=== PATIENT | female | born 1990 | race Caucasian/White ===

== ENCOUNTER 2016-12-23 19:03 | Inpatient (IN) | payer BC ==
--- NOTE | ~2016-12-23 | PA ---
Unit #: [id number] #: [id number] Patient: DAVI BRUNO [id number] [facility] [address] [place] [address] [id number] MR#: [id number] NAME: DAVI BRUNO ROOM: P254 Age: 26 Sex: F Admission Date: 12/23/2016 : 1990 Date of Assessment: 12/24/2016 Attending Physician: Marilee Mensah M.D. Admitting Physician: Marilee Mensah M.D. Primary Care Physician: Primary Care Physician No PSYCHIATRIC ASSESSMENT DATE OF SERVICE 12/24/2016. IDENTIFYING DATA Ms. Bruno is a 26-year-old white female who is a resident of [place], [place] and was brought to the hospital accompanied by her . CHIEF COMPLAINT "I tried to go and seek treatment." HISTORY OF PRESENT ILLNESS Ms. Bruno is a 26-year-old white female who was brought to the hospital with increasing depression stating that her medication is not doing anything. Things are progressively getting worse. 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 I have to excuse herself because of the panic attack and she reports that she is in treatment and has been taking medication, but does not feel the medication has been helping her as she has been greeted anxiety attacks and increasing depression and feels the things are getting worse and denies any thoughts of wanting to kill herself and reports some anger towards "beating the hell out of some coworkers." However, she did not recall any names of it. She stated the last time she has suicidal ideation was when she was having a panic attack and thought about jumping out of the third floor of the building and today she has thought about jumping out of the car on the way to the work and stated that she has thought about taking a handful of pills and as such, was seen to be danger to self and others and recommendation for inpatient level of care was made and the patient was transferred to us. SUBSTANCE ABUSE HISTORY The patient reports history of experimentation with drugs including cannabis, cocaine, acid and currently she denies any drug and has not any drugs since teenage years. PAST PSYCHIATRIC HISTORY The patient has had history of outpatient psychiatric treatment through different providers and currently she has been seeing Dr. Edgar Minor on an outpatient basis and review of the medical records indicate that she is on a combination of BuSpar and Wellbutrin, but does not feel the medication has been helping her. Unit #: [id number] #: [id number] Patient: DAVI BRUNO PAST MEDICAL HISTORY The patient's medical history is significant for asthma, interstitial cystitis. ALLERGIES Morphine. PERSONAL AND SOCIAL HISTORY A 26-year-old white female who reports that she is and lives at home with her and niece, and her 8-year-old daughter, and she is currently employed and reports having fairly decent social support system. MENTAL STATUS EXAMINATION Young white female who was casually dressed with fair personal hygiene, appears to be in no acute distress or discomfort. She was awake and alert on interaction with intact orientation to time, place, and person. Her mood was anxious and depressed with a congruent affect. Her speech was slow and restricted in content. She reports having suicidal ideations, but as well as some vague homicidal ideations. Her insight and judgment remain significantly impaired. DIAGNOSTIC IMPRESSION Psychiatric: Major depressive disorder, recurrent, moderate, without psychotic features; generalized anxiety disorder. Medical: Interstitial cystitis and asthma. Stressors: Moderate psychosocial stressors. TREATMENT PLAN 1. The patient has presented with history of mood disorder and has been decompensating and will need inpatient hospitalization for safety and stabilization. We will start her back on her home medications. We will adjust the medications and monitor response. 2. Supportive therapy was provided to the patient. 3. Safe, structured, and nourishing environment will be provided. ESTIMATED LENGTH OF STAY 5 to 7 days. ABILITY TO HELP SELF Limited. WILLINGNESS TO HELP SELF The patient appears to be willing to help self. STRENGTHS 1. Communicative. 2. Cooperative. PROBLEMS 1. Chronic dysphoric symptoms. 2. Poor social support system. DISCHARGE CRITERIA This will be contingent upon the patient's ability to show resolution of her depression and anxiety as well as her ability to stay safe to herself, particularly after discharge from the hospital. Dictated by... Unit #: [id number] #: [id number] Patient: DAVI BRUNO Shannon Carr/jose TD: 12/25/2016 01:43 JOB #: [id number] PSYCHIATRIC ASSESSMENT X Marilee Mensah MD PSYCHIATRIC ASSESSMENT
--- NOTE | ~2016-12-23 | PN ---
Unit #: [id number] #: [id number] Patient: DAVI BRUNO [id number] [facility] [address] [place] [address] [id number] I MR#: [id number] NAME: DAVI BRUNO ROOM: P254 Age: 26 Sex: F Admission Date: 12/23/2016 : 1990 Attending Physician: Marilee Mensah M.D. Admitting Physician: Marilee Mensah M.D. Primary Care Physician: Primary Care Physician Precious HENDRIX PROGRESS NOTES DATE OF SERVICE: 12/26/2016 SUBJECTIVE Ms. Bruno is a 26-year-old white female, who was seen today and chart was reviewed and the case was discussed with the staff. She has been anxious, withdrawn, depressed, and rather seclusive to herself. Meanwhile, she has been cooperative with the treatment recommendations and has been taking the medications and tolerating them fairly well with no reported side effects. MENTAL STATUS EXAMINATION Young white female, who was casually dressed with a fair personal hygiene, appears to be in no acute distress or discomfort. She was awake and alert on interaction with intact orientation. Her mood was anxious with a congruent affect. She denies any suicidal or homicidal ideations. Her insight and judgment remain slightly impaired. TREATMENT PLAN 1. We will continue her on her current medications and treatment protocol. We will monitor her response to the medications and make further adjustments as needed. 2. We will continue to follow up. Dictated by... Shannon Carr/jose TD: 12/26/2016 20:58 JOB #: [id number] [facility] PROGRESS NOTES X Marilee Mensah MD PROGRESS NOTE
--- NOTE | ~2016-12-23 | DS ---
Unit #: [id number] #: [id number] [facility]: [facility] [id number] [facility] [address] [place] [address] [id number] MR#: [id number] NAME: DAVI BRUNO ROOM: P254 Age: 26 Sex: F Admission Date: 12/23/2016 : 1990 Discharge Date: 12/29/2016 Attending Physician: Marilee Mensah M.D. Primary Care Physician: Primary Care Physician No DISCHARGE SUMMARY IDENTIFYING DATA Ms. Bruno is a 26-year-old single white female, who is a resident of [place], [place], and was brought to the hospital accompanied by her . DISCHARGE DIAGNOSES Psychiatric: Major depressive disorder, recurrent, moderate, without psychotic features; generalized anxiety disorder. Medical: Interstitial cystitis and asthma. Stressors: Moderate psychosocial stressors. HISTORY OF PRESENT ILLNESS Please see initial psychiatric evaluation for details. PAST PSYCHIATRIC HISTORY Please see initial psychiatric evaluation for details. PAST MEDICAL HISTORY Please see initial psychiatric evaluation for details. HOSPITAL COURSE The patient was admitted to the adult psychiatric unit at [facility] and was oriented to the hospital environment. Routine p.r.n. medications were initiated, and she was started back on her home medications and medications were adjusted and she was closely monitored. She was taking the medications regularly and was tolerating them fairly well and was able to show a decent and therapeutic response and as such, it was decided that she will be discharged home and will continue treatment on an outpatient basis. DISCHARGE MEDICATIONS Effexor XR 75 mg at bedtime for depression, BuSpar 15 mg t.i.d. for anxiety, Risperdal 0.5 mg b.i.d. for mood disorder. DISCHARGE CONDITION Stable. PROGNOSIS Fair. Dictated by... Marilee Mensah M.D. Unit #: [id number] #: [id number] Patient: DAVI BRUNO IAA/modl TD: 12/29/2016 08:03 JOB #: [id number] DISCHARGE SUMMARY X Marilee Mensah MD X DISCHARGE SUMMARY
--- NOTE | ~2016-12-23 | HP ---
Unit #: [id number] #: [id number] Patient: DAVI BRUNO [id number] [place] [address] [id number] MR#: [id number] NAME: DAVI BRUNO ROOM: P254 Age: 26 Sex: F Admission Date: 12/23/2016 : 1990 Attending Physician: Marilee Mensah M.D. Admitting Physician: Marilee Mensah M.D. Primary Care Physician: Primary Care Physician No HISTORY AND PHYSICAL HISTORY OF PRESENT ILLNESS Davi is a 26 year old admitted to [address] [place] [address] with increased anxiety and panic attacks. PAST MEDICAL HISTORY 1. History of interstitial cystitis. 2. History of kidney stones. 3. History of migraine headaches. PAST SURGICAL HISTORY Multiple lithotripsies. ALLERGIES Morphine. SOCIAL HISTORY Smokes less than 1 pack per day. Drinks alcohol socially. Admits to using marijuana on occasion. FAMILY HISTORY Medically noncontributory. REVIEW OF SYSTEMS CONSTITUTIONAL: No fever or chills. HEENT: Denies any sore throat, ear pain or runny nose. CARDIOVASCULAR: Denies chest pain, irregular heart rhythm or palpitations. CHEST: Denies shortness of breath or cough. No hemoptysis. GASTROINTESTINAL: Denies nausea, vomiting, diarrhea or chronic constipation. ENDOCRINE: Denies history of increased thirst or urination. No recent significant weight loss or gain. GENITOURINARY: Denies dysuria, frequency, or hematuria. SKIN: Denies any rashes. HEMATOLOGIC: Denies history of increased bleeding or bruising. MUSCULOSKELETAL: Denies any hot, swollen joints. No generalized muscle pain. NEUROLOGIC: Denies problems with vision or speech. No frequent, severe headaches. No numbness, tingling or weakness in any extremities. Denies loss of bladder or bowel control. CURRENT MEDICATIONS 1. Effexor XR 75 mg q.h.s. 2. Risperdal 0.5 mg b.i.d. Unit #: [id number] #: [id number] Patient: DAVI BRUNO 3. Milk of Magnesia p.r.n. 4. Maalox p.r.n. 5. Tylenol p.r.n. 6. Proventil inhaler p.r.n. 7. BuSpar 15 mg t.i.d. 8. Nicotine patch 14 mg daily. PHYSICAL EXAMINATION GENERAL: Alert, well-nourished, no apparent distress. VITAL SIGNS: Blood pressure 113/80, heart rate 76, respirations 16, temperature 98.6. WEIGHT: 144. HEIGHT: 5 feet 2 inches. SKIN: Warm and dry without rash or lesion. HEENT: Normocephalic. TMs not viewed. Oral and nasal passages clear. Conjunctivae clear. PERRLA. EOMs intact. NECK: Supple without lymphadenopathy or thyromegaly. HEART: Regular rate and rhythm without murmur. LUNGS: Clear. ABDOMEN: Soft, nontender. : Not done. EXTREMITIES: No evidence of cyanosis, clubbing or edema. Moves all without focal deficit. NEUROLOGICAL: Grossly within normal limits. Cranial Nerves: II: Visual gonsalez are intact. III, IV AND : Extraocular movements are intact. Pupils are equal, round and reactive to light. V: Facial sensation is grossly normal. VII: Facial movements and expression are normal. VIII: Auditory acuity grossly intact. IX, X: Uvula is midline. Phonation is normal. XI: Patient shrugs shoulders and turns head normally. XII: Tongue protrudes in the midline. Sensory and Motor Function: Sensory and motor sensation is grossly normal. Motor: moves all extremities well. Coordination: Gait is normal. Deep Tendon Reflexes: Intact. DIAGNOSTIC STUDIES LABORATORY DATA: Admission labs, BUN/creatinine 9/0.6. IMPRESSION Psychiatric admission. RECOMMENDATIONS PSYCHIATRIC: Per psychiatrist. MEDICAL: See no contraindications to participate in facility's activities. MEDICAL PROGNOSIS Good. MEDICAL CONDITION Stable. Dictated by... Genny Floyd P.A.-C. for Rikki Marx M.D. Unit #: [id number] #: [id number] Patient: DAVI BRUNODANELLE/mikaela TD: 12/24/2016 18:56 JOB #: [id number] HISTORY AND PHYSICAL X Genny Floyd HISTORY AND PHYSICAL
--- NOTE | ~2016-12-23 | PN ---
Unit #: [id number] #: [id number] Patient: DAVI BRUNO [id number] [facility] [address] [place] [address] [id number] I MR#: [id number] NAME: DAVI BRUNO ROOM: P254 Age: 26 Sex: F Admission Date: 12/23/2016 : 1990 Attending Physician: Marilee Mensah M.D. Admitting Physician: Marilee Mensah M.D. Primary Care Physician: Primary Care Physician Precious HENDRIX PROGRESS NOTES DATE 12/27/2016 DISCUSSION Ms. Bruno is a 26-year-old white female who was seen today and chart was reviewed and case was discussed with the staff. She has been anxious, withdrawn though has not shown any agitation, irritability and has been calm and cooperative reports that she has not anxiety attack and has been rather excited about it. MENTAL STATUS EXAMINATION Young white female who was casually dressed with fair personal hygiene, appears to be in no acute distress or discomfort. She was awake and alert on interaction with intact orientation. Her mood was anxious with congruent affect. She denies any suicidal or homicidal ideations. Her insight and judgement remains slightly impaired. TREATMENT PLAN 1. We will continue her on her current medications and treatment protocol. We will monitor her response to the medication and make further adjustments as needed. 2. We will continue to follow up. Dictated by... Shannon Carr/renay TD: 12/29/2016 01:52 JOB #: [id number] Unit #: [id number] #: [id number] Patient: DAVI BRUNO KADYVELVET PROGRESS NOTES X Marilee Mensah MD PROGRESS NOTE
--- NOTE | ~2016-12-23 | PN ---
Unit #: [id number] #: [id number] Patient: DAVI BRUNO [id number] [facility] [address] [place] [address] [id number] I MR#: [id number] NAME: DAVI BRUNO ROOM: P254 Age: 26 Sex: F Admission Date: 12/23/2016 : 1990 Attending Physician: Marilee Mensah M.D. Admitting Physician: Marilee Mensah M.D. Primary Care Physician: Primary Care Physician Precious LINDQUIST NOTES DATE OF SERVICE: 12/28/2016 SUBJECTIVE Ms. Bruno is a 26-year-old white female, who was seen today and chart was reviewed, and case was discussed with the staff. She reports doing fairly well and has been calm and cooperative with treatment recommendations, and has been taking the medications and tolerating them fairly well. MENTAL STATUS EXAMINATION Young white female, who was casually dressed with fair personal hygiene, appears to be in no acute distress or discomfort. She was awake and alert on interaction with intact orientation. Her mood was anxious with a congruent affect. She denies any suicidal or homicidal ideations. Her insight and judgment remain slightly impaired. TREATMENT PLAN We will continue her on her current medications and treatment protocol. We will monitor her response to the medications and make further adjustments as needed. Dictated by... Shannon Carr/jose TD: 12/29/2016 06:35 JOB #: [id number] [facility] PROGRESS NOTES X Marilee Mensah MD X PROGRESS NOTE
--- NOTE | ~2016-12-23 | PN ---
Unit #: [id number] #: [id number] Patient: DAVI BRUNO [id number] [facility] [address] [place] [address] [id number] MR#: [id number] NAME: DAVI BRUNO ROOM: P254 Age: 26 Sex: F Admission Date: 12/23/2016 : 1990 Attending Physician: Marilee Mensah M.D. Admitting Physician: Marilee Mensah M.D. Primary Care Physician: Primary Care Physician Precious LINDQUIST NOTES DATE OF SERVICE: 12/25/2016 SUBJECTIVE Ms. Bruno is a 26-year-old white female with mood disorder, who was seen today and chart was reviewed, and case was discussed with the staff. She was lying in her bed and was reporting some persistent depression, anxiety, and irritability, though she has been taking the medication yesterday and has been tolerating them fairly well. MENTAL STATUS EXAMINATION Young white female who was casually dressed with fair personal hygiene, appears to be in no acute distress or discomfort. She was awake and alert on interaction with intact orientation. Her mood was anxious with a congruent affect. She denies any suicidal or homicidal ideations. Her insight and judgment remain slightly impaired. TREATMENT PLAN 1. We will continue on her current medications and treatment protocol. We will monitor her response to medication and make further adjustments as needed. 2. We will continue to follow up. Dictated by... Shannon Carr/jose TD: 12/26/2016 07:03 JOB #: [id number] [facility] PROGRESS NOTES X Marilee Mensah MD PROGRESS NOTE
[2016-12-24 12:31] LABS: BASOPHIL# 0.1 X10e3 (0-0.3); BASOPHIL% 1.2 % (0-2.5); EOSINOPHIL# 0.2 X10e3 (0-0.7); EOSINOPHIL% 3.1 % (0.0-7.0); HEMATOCRIT 37.9 % (35.0-45.0); HEMOGLOBIN 12.2 gm/dL (12.0-16.0); LYMPHOCYTE# 1.7 X10e3 (1.0-3.5); LYMPHOCYTE% 25.3 % (17.0-45.0); MEAN CELL VOLUME 99.8 FL (83-96); MEAN CORPUSCULAR HEMOGLOBIN 32.2 PG (28-34); MEAN CORPUSCULAR HGB CONC 32.2 g/dL (30-36); MEAN PLATELET VOLUME 10.3 FL (6.5-11.5); MONOCYTE# 0.6 X10e3 (0-1.0); MONOCYTE% 8.8 % (3.0-12.0); NEUTROPHIL% 61.6 % (40-75); PLATELET COUNT 218 X10e3 (140-420); RED CELL DISTRIBUTION WIDTH 13.1 % (11.0-15.5); WHITE BLOOD COUNT 6.5 X10e3 (4.0-10.5)
[2016-12-24 12:38] LABS: URINE APPEARANCE CLEAR; URINE BILIRUBIN NEG (NEG); URINE BLOOD 1+ (NEG); URINE COLOR YELLOW; URINE GLUCOSE NEG (NEG); URINE KETONE NEG (NEG); URINE LEUKOCYTE ESTERASE NEG (NEG); URINE NITRATE NEG (NEG); URINE PROTEIN NEG (NEG); URINE SPECIFIC GRAVITY 1.021 (1.003-1.035); URINE UROBILINOGEN 0.2 MG/DL (NEG)
[2016-12-24 12:39] LABS: ALBUMIN SERUM 4.2 g/dL (3.5-5.0); ALKALINE PHOSPHATASE 78 U/L (32-92); ALT (SGPT) 13 U/L (10-40); AST (SGOT) 14 U/L (10-42); BILIRUBIN,TOTAL 0.5 mg/dL (0.2-2.0); BLOOD UREA NITROGEN 9 mg/dL (9-23); CALCIUM SERUM 10.1 mg/dL (8.4-10.2); CARBON DIOXIDE 28 mmol/L (22-31); CHLORIDE 105 mmol/L (100-111); CREATININE SERUM 0.6 mg/dL (0.6-1.4); GLOM FILT RATE Estimated ABOVE60 mL/min (>60); GLUCOSE FASTING 96 mg/dL (70-110); POTASSIUM 4.7 mmol/L (3.5-5.1); PROTEIN TOTAL SERUM 6.5 g/dL (6.0-8.3); SODIUM 139 mmol/L (135-145)
[2016-12-24 12:41] LABS: URINE BACTERIA AUWI 1+ (NEGATIVE); URINE SQUAMOUS EPITHELIAL CELL OCC /[HPF]
[2016-12-24 12:41] LABS: DIFF IND NO
[2016-12-24 12:56] LABS: THYROID STIMULATING HORMONE 0.71 uIU/ml (0.34-5.60)
[2016-12-24 13:04] LABS: FREE THYROXIN (T4) 0.9 ng/dL (0.58-1.64)
[2016-12-24 13:54] LABS: AMPHETAMINE NEG (NEG); BARBITURATES NEG (NEG); BENZODIAZEPINES POS (NEG); COCAINE NEG (NEG); MARIJUANA POS (NEG); OPIATES NEG (NEG); TRICYCLIC ANTIDEPRESSANTS NEG (NEG); U METHADONE NEG (NEG)
== END 2016-12-29 10:15 | disposition home or self-care (01) | DRG 885 ==
LOC: P2L 19:03
PROVIDERS: Psychiatry & Neurology Psychiatry
DX: F33.1 Major depressive disorder, recurrent, moderate (principal); N30.10 Interstitial cystitis (chronic) without hematuria; F41.1 Generalized anxiety disorder; J45.909 Unspecified asthma, uncomplicated
CPT/HCPCS: 80053; 80307; 81003; 84439; 84443; 84703; 85025